=== PATIENT | male | born 1990 | race Caucasian/White ===

== ENCOUNTER 2016-12-07 22:31 | Emergency (ER) | payer MEDICAID ==
[2016-12-07 23:47] LABS: UA SPECIFIC GRAVITY >=1.030 (1.005-1.035); microscopic required? YES; urine erythrocyte NEGATIVE (NEGATIVE)
[2016-12-08 02:05] VITALS: BP 119/75
== END 2016-12-08 02:03 | disposition home or self-care (01) ==
LOC: ED 22:31
PROVIDERS: Emergency Medicine
DX: N45.1 Epididymitis (principal); J45.909 Unspecified asthma, uncomplicated; F17.210 Nicotine dependence, cigarettes, uncomplicated
CPT/HCPCS: 87491; 87591; J1885; Q0092

== ENCOUNTER 2017-06-02 17:36 | Emergency (ER) | payer MEDICAID | END 2017-06-02 18:05 | disposition left against medical advice (07) | LOC: ED 17:36 | DX: Z53.21 Procedure and treatment not carried out due to patient leaving prior to being seen by health care provider (principal) ==

== ENCOUNTER 2018-05-29 05:17 | Emergency (ER) | payer MEDICAID ==
[~2018-05-29] VITALS: Ht 180.3 cm; Wt 87.5 kg
[2018-05-29 05:21] VITALS: Ht 180.3 cm; Wt 87.5 kg
[2018-05-29 06:32] VITALS: BP 132/97
== END 2018-05-29 06:28 | disposition home or self-care (01) ==
LOC: ED 05:17
DX: J45.909 Unspecified asthma, uncomplicated (principal); F17.210 Nicotine dependence, cigarettes, uncomplicated

== ENCOUNTER 2018-07-01 07:04 | Emergency (ER) | payer MEDICAID ==
[2018-07-01 09:51] VITALS: BP 133/70
== END 2018-07-01 09:51 | disposition home or self-care (01) ==
LOC: ED 07:04
DX: J45.901 Unspecified asthma with (acute) exacerbation (principal); F17.210 Nicotine dependence, cigarettes, uncomplicated; F12.90 Cannabis use, unspecified, uncomplicated
CPT/HCPCS: 99406; J2930; J7613; J7644

== ENCOUNTER 2018-11-24 21:05 | Emergency (ER) | payer MEDICAID ==
[~2018-11-24] VITALS: Ht 180.3 cm; Wt 89.8 kg
[2018-11-24 21:15] VITALS: Ht 180.3 cm; Wt 89.8 kg
[2018-11-24 22:00] VITALS: BP 136/88
== END 2018-11-24 23:21 | disposition left against medical advice (07) ==
LOC: ED 21:05
DX: Z53.21 Procedure and treatment not carried out due to patient leaving prior to being seen by health care provider (principal)

== ENCOUNTER 2019-08-27 14:02 | Emergency (ER) | payer MEDICAID ==
[~2019-08-27] VITALS: Ht 180.3 cm; Wt 90.7 kg
[2019-08-27 14:28] VITALS: Ht 180.3 cm; Wt 90.7 kg
[2019-08-27 16:48] VITALS: BP 140/87
== END 2019-08-27 16:48 | disposition home or self-care (01) ==
LOC: ED 14:02
DX: J45.901 Unspecified asthma with (acute) exacerbation (principal)
CPT/HCPCS: 87804; J1100; J7613; J7644; Q0092; U0002

== ENCOUNTER 2019-11-08 03:52 | Emergency (ER) | payer MEDICAID ==
[~2019-11-08] VITALS: Ht 180.3 cm; Wt 91.7 kg
[2019-11-08 03:59] VITALS: BP 117/88; Ht 180.3 cm; Wt 91.7 kg
== END 2019-11-08 05:33 | disposition left against medical advice (07) ==
LOC: ED 03:52
DX: Z53.21 Procedure and treatment not carried out due to patient leaving prior to being seen by health care provider (principal)
CPT/HCPCS: J7613; J7644

== ENCOUNTER 2019-11-30 02:55 | Emergency (ER) | payer MEDICAID ==
[~2019-11-30] VITALS: Ht 180.3 cm; Wt 99.9 kg
[2019-11-30 03:02] VITALS: Ht 180.3 cm; Wt 99.9 kg
[2019-11-30 03:41] VITALS: BP 120/78
== END 2019-11-30 05:27 | disposition left against medical advice (07) ==
LOC: ED 02:55
DX: Z53.21 Procedure and treatment not carried out due to patient leaving prior to being seen by health care provider (principal)

== ENCOUNTER 2020-05-22 09:42 | Emergency (ER) | payer MEDICAID ==
[~2020-05-22] VITALS: Ht 180.3 cm; Wt 86.2 kg
[2020-05-22 10:01] VITALS: BP 149/87; Ht 180.3 cm; Wt 86.2 kg
== END 2020-05-22 10:30 | disposition home or self-care (01) ==
LOC: ED 09:42
DX: J45.909 Unspecified asthma, uncomplicated (principal); F17.210 Nicotine dependence, cigarettes, uncomplicated
CPT/HCPCS: 99406

== ENCOUNTER 2020-08-20 05:19 | Emergency (ER) | payer MEDICAID ==
[~2020-08-20] VITALS: Ht 180.3 cm; Wt 98.4 kg
[2020-08-20 05:27] VITALS: BP 129/86; Ht 180.3 cm; Wt 98.4 kg
[2020-08-20] MEDS ORDERED: PROAIR RES117 MCG/Ac INH (06:18)
[2020-08-20] MEDS ORDERED: PREDNISONE50 MG PO (06:18)
[2020-08-20 06:39] LABS: PLATELET COUNT 202 x10^3mcL (152-348); RED CELL DISTRIBUTION WIDTH 13.4 % (12.1-16.2)
[2020-08-20 06:44] LABS: CALCIUM 8.7 mg/dL (8.5-10.1); CARBON DIOXIDE 31.7 mmol/L (21-32); CHLORIDE SERUM 107 mmol/L (98-107); CREATININE SERUM 1.1 mg/dL (0.7-1.3); GFR1 > 60 mL/min; GLUCOSE SERUM 117 mg/dL (74-106); POTASSIUM SERUM 4.1 mmol/L (3.5-5.1); SODIUM SERUM 144 mmol/L (136-145)
[2020-08-20 06:48] LABS: ALBUMIN 3.4 g/dL (3.4-5.0); ALKALINE PHOSPHATASE 160 U/L (46-116); ALT/SGPT 61 U/L (16-63); AST/SGOT 17 U/L (15-37); BILIRUBIN TOTAL 0.2 mg/dL (0.20-1.00); LIPASE 148 IU/L (73-393); TOTAL PROTEIN, SERUM 7.3 g/dL (6.4-8.2)
== END 2020-08-20 06:30 | disposition home or self-care (01) ==
LOC: ED 05:19
DX: J45.901 Unspecified asthma with (acute) exacerbation (principal)
CPT/HCPCS: J7613; J7644